=== PATIENT | female | born 1955 | race African-American/Black ===

== ENCOUNTER 2019-09-20 09:20 | Emergency (ER) | payer BC, SELFPAY ==
[2019-09-20 09:46] VITALS: BP 143/87; PULSE 69; RESP 16; TEMP 36.3; O2SAT 98
--- NOTE | 2019-09-20 09:57 | ED.SKABFB ---
HPI - Skin/Abscess/Foreign Bdy General Chief complaint: Extremity Injury, Upper Stated complaint: left arm swelling Time Seen by Provider: 09/20/19 09:50 Source: patient and RN notes reviewed Mode of arrival: ambulatory Limitations: no limitations History of Present Illness HPI narrative: Patient presents today complaining of swelling and bruising to the left forearm since yesterday. Patient currently takes Xarelto for previous DVT. 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 She called her PCP today and was told to not take her dose of Xarelto today. MD complaint: discoloration Related Data Home Medications Medication Instructions Recorded Confirmed Lipitor 09/20/19 Pepcid 09/20/19 Protonix 09/20/19 Xarelto 09/20/19 levothyroxine 09/20/19 Allergies Allergy/AdvReac Type Severity Reaction Status Date / Time tetracycline Allergy Hives Verified 09/20/19 09:52 Review of Systems Review of Systems: Narrative: CONSTITUTIONAL: Denies body aches, fever, chills, or sweats. EYES: Denies visual changes, redness, or discharge. ENT: Denies rhinorrhea, congestion, sore throat, or otalgia. CARDIOVASCULAR: Denies chest pain, palpitations, or edema. RESPIRATORY: Denies cough or dyspnea. GASTROINTESTINAL: Denies abdominal pain, nausea, vomiting, or diarrhea. GENITOURINARY: Denies dysuria or hematuria. SKIN: Denies rash, itching, or wounds.+ Bruising and swelling to the left forearm MUSCULOSKELETAL: Denies back pain, joint pain, or myalgia. NEUROLOGIC: Denies headache, numbness, tingling, or weakness. PSYCH: Denies depression or anxiety. PMFSH Past Medical History Medical History (Updated 09/20/19 @ 10:00 by Savanna Boles, [facility], ) DVT (deep venous thrombosis) GERD (gastroesophageal reflux disease) Hypercholesterolemia Social History Social History Gender identity (if verbalized by the patient): Female Comments At time of signature, I have reviewed and agree with nursing past medical, surgical, social and family history unless otherwise noted. Please see nursing chart for further information. There is no relevant family history pertinent to the presenting complaint Exam Narrative: Exam Narrative: GENERAL: Well-appearing, well-nourished, and in no acute distress. HEAD: Normocephalic, atraumatic. EYES: EOMI. No redness or drainage. Conjunctivae normal. ENT: Mucous membranes pink and moist. NECK: Normal AROM. CHEST: No respiratory distress. EXTREMITIES: 7 x 8 cm mild hematoma to the left forearm. Mildly tender to palpation. Distal sensation intact. Capillary refill normal. Radial pulse normal. Full AROM of elbow and wrist. No other bruising noted. SKIN: Warm, dry, no rash. Capillary refill normal. Normal skin turgor. NEURO: No focal deficits. Alert and oriented x3. Gait steady. PSYCH: Normal affect. No signs of depression or anxiety. Course Vital Signs Vital signs: Vital Signs Temperature 97.3 F L 09/20/19 09:46 Pulse Rate 69 09/20/19 09:46 Respiratory Rate 16 09/20/19 09:46 Blood Pressure 143/87 H 09/20/19 09:46 Pulse Oximetry 98 09/20/19 09:46 Temperature 97.3 F L 09/20/19 09:46 Pulse Rate 69 09/20/19 09:46 Respiratory Rate 16 09/20/19 09:46 Blood Pressure 143/87 H 09/20/19 09:46 Pulse Oximetry 98 09/20/19 09:46 Reviewed. Pt has been instructed to follow up with her PCP regarding her elevated blood pressure today. MDM - Skin/Abscess/Foreign Bdy Differential Diagnosis Differential diagnosis: Likely abscess of skin or subcutaneous tissue, cellulitis and other (Hematoma, contusion) Critical Care Time Critical Care Time Critical Care Time: No Discharge Plan Discharge Clinical Impression: Traumatic hematoma of left forearm Qualifiers: Encounter type: initial encounter Qualified Code(s): S50.12XA - Contusion of left forearm, initial encounter Patient Disposition: Home, Self-Care Condition: Stable Instructions: Hematoma (ED) Additional
== END 2019-09-20 10:02 | disposition home or self-care (01) ==
PROVIDERS: Emergency Provider Nurse Practitioner
DX: S50.12XA Contusion of left forearm, initial encounter (principal); E78.00 Pure hypercholesterolemia, unspecified; Z86.718 Personal history of other venous thrombosis and embolism; Z79.01 Long term (current) use of anticoagulants
CPT/HCPCS: 99201; G0463